=== PATIENT | female | born 1965 | race Caucasian/White ===

== ENCOUNTER 2019-04-12 12:47 | Emergency (ER) | payer BC ==
[~2019-04-12] VITALS: Ht 165.1 cm; Wt 78.7 kg
[2019-04-12 16:26] VITALS: BP 120/59
== END 2019-04-12 16:29 | disposition home or self-care (01) ==
LOC: ER 12:47
DX: J06.9 Acute upper respiratory infection, unspecified (principal); E11.9 Type 2 diabetes mellitus without complications; Z90.49 Acquired absence of other specified parts of digestive tract; Z90.710 Acquired absence of both cervix and uterus
CPT/HCPCS: 71045; 99283